=== PATIENT | female | born 1995 | race Caucasian/White ===

== ENCOUNTER 2016-08-01 10:30 | Emergency (ER) | payer SELFPAY ==
[~2016-08-01] VITALS: Ht 157.5 cm; Wt 46.4 kg
[~2016-08-01 10:30] MED LIST: INDOCIN25 MG PO; PONSTEL250 MG PO; PROMETHAZINE HC25 M1 PO; ZOLOFT25 MG PO
[2016-08-01 10:36] VITALS: BP 114/79
== END 2016-08-01 11:46 | disposition home or self-care (01) ==
LOC: EME 10:30
DX: S00.512A Abrasion of oral cavity, initial encounter (principal); S30.810A Abrasion of lower back and pelvis, initial encounter; S70.211A Abrasion, right hip, initial encounter; S80.811A Abrasion, right lower leg, initial encounter; M25.532 Pain in left wrist; V00.131A Fall from skateboard, initial encounter; F17.200 Nicotine dependence, unspecified, uncomplicated
CPT/HCPCS: 73110; 73130; 99281; 99284; J1885

== ENCOUNTER 2016-11-20 15:49 | Emergency (ER) | payer SELFPAY ==
[~2016-11-20] VITALS: Ht 160 cm; Wt 44.9 kg
[2016-11-20] MEDS ORDERED: LOTRISONE15 GM TP (16:31)
[2016-11-20] MEDS ORDERED: CLARITIN,ALAVAR10 MG PO (16:31)
[2016-11-20 16:43] VITALS: BP 109/58
== END 2016-11-20 16:45 | disposition home or self-care (01) ==
LOC: EME 15:49
DX: L25.9 Unspecified contact dermatitis, unspecified cause (principal); F17.200 Nicotine dependence, unspecified, uncomplicated
CPT/HCPCS: 99281; 99283

== ENCOUNTER 2017-06-01 14:20 | Emergency (ER) | payer OTHER ==
[~2017-06-01] VITALS: Ht 160 cm; Wt 42.5 kg
[~2017-06-01 14:20] MED LIST changes: +CLARITIN,ALAVAR10 MG PO; +LOTRISONE15 GM TP
[2017-06-01 17:45] VITALS: BP 128/82
== END 2017-06-01 17:53 | disposition home or self-care (01) ==
LOC: EME 14:20
PROVIDERS: Physician Assistant
DX: J06.9 Acute upper respiratory infection, unspecified (principal); K08.89 Other specified disorders of teeth and supporting structures; F31.9 Bipolar disorder, unspecified; F32.9 Major depressive disorder, single episode, unspecified; F17.200 Nicotine dependence, unspecified, uncomplicated
CPT/HCPCS: 87502; 99281; 99284